=== PATIENT | female | born 1975 | race Asian ===

== ENCOUNTER 2024-03-16 12:34 | Emergency (ER) | payer OTHER ==
[~2024-03-16] VITALS: Ht 157.5 cm; Wt 64.0 kg
[2024-03-16 12:48] VITALS: PULSE 78; RESP 16; O2SAT 100
[2024-03-16 13:06] VITALS: BP 121/81; TEMP 98.7; O2SAT 99
== END 2024-03-16 15:39 | disposition left against medical advice (07) ==
LOC: ER 13:08
DX: M25.512 Pain in left shoulder (principal); Z53.21 Procedure and treatment not carried out due to patient leaving prior to being seen by health care provider